=== PATIENT | male | born 2000 | race Caucasian/White ===

== ENCOUNTER 2023-12-05 00:21 | Observation (INO) ==
[2023-12-05 01:36] LABS: Urine Appearance Clear; Urine Bacteria Absent (Absent); Urine Bilirubin Negative (Negative); Urine Blood 3+ (Negative); Urine Color Straw; Urine Glucose Negative (Negative); Urine Ketones Negative (Negative); Urine Nitrite Negative (Negative); Urine Protein 1+(30 mg/dL) (Negative); Urine Red Blood Cell Absent (Absent); Urine Specific Gravity 1.005 (1.002-1.030); Urine Urobilinogen Negative (Negative); Urine White Blood Cell Absent (Absent)
[2023-12-05 01:48] LABS: ABS Basophils 0.1 10^3/uL (0.0-0.1); ABS Eosinophils 0.3 10^3/uL (0.0-0.5); ABS Lymphocytes 2.5 10^3/uL (1.0-4.8); ABS Monocytes 0.6 10^3/uL (0.0-1.1); ABS Neutrophils 4.1 10^3/uL (1.5-7.6); ABS Nucleated RBC 0.01 10^3/ul; Eosinophil % 4.2 %; Hemoglobin 12.9 g/dL (13.2-16.3); Lymphocyte % 32.4 %; Mean Corpuscular Hemoglobin 31.3 pg (27-33); Mean Corpuscular Volume 91.9 fL (80-97); Nucleated Red Blood Cells % 0.1 %/100WBC (0.0-0.8); Platelet Count 223 10^3/uL (150-450); Red Blood Count 4.13 10^6/uL (4.06-5.63); Red Cell Distribution Width 13.7 % (12-17); White Blood Count 7.6 10^3/uL (3.6-10.2)
[2023-12-05 02:06] LABS: C Reactive Protein 4.59 mg/L (<8.01); Calcium 8.8 mg/dL (8.6-10.3); Creatinine, Serum 0.65 mg/dL (0.67-1.17); eGFR CKD-EPI 134.1 (>60)
[2023-12-05 02:29] LABS: Albumin 3.9 g/dL (3.2-5.2); Albumin/Globulin Ratio 1.6 (1-3); Globulin 2.4 g/dL (2-4); Total Bilirubin 0.7 mg/dL (0.2-1.0); Total Protein 6.3 g/dL (6.4-8.9)
[2023-12-05] MEDS ORDERED: NS 0.9% 1000 ml BAG 1,000 ML IV ONE ×2 (03:41→04:31)
[2023-12-05] MEDS ORDERED: Polyethylene Glycol 3350 17 GM PACKET PO PRN (04:18)
[2023-12-05] MEDS ORDERED: Magnesium Hydroxide LIQ 30 ML UDC PO PRN (04:18)
[2023-12-05 04:22] LABS: Hepatitis B Surface Antigen Nonreactive (Nonreactive)
[2023-12-05 04:27] LABS: Hepatitis A Ab IgM Negative (Negative)
[2023-12-05 04:28] LABS: Hepatitis B Core IgM Nonreactive (Nonreactive)
[2023-12-05 04:40] LABS: Hepatitis C Antibody Negative (Negative)
[2023-12-05 05:33] LABS: Urine Benzodiazepine Screen None Detected (None Detect); Urine Cannabinoids Screen None Detected (None Detect); Urine Opiates Screen None Detected (None Detect)
[2023-12-05] MEDS: NS 0.9% 1000 ml BAG 1,000 ML IV SCH ×2 (06:21→11:43)
[2023-12-05 06:46] LABS: INR 1.04 (0.83-1.13)
[2023-12-05 08:57] LABS: Albumin 3.7 g/dL (3.2-5.2); Albumin/Globulin Ratio 1.8 (1-3); Calcium 8.3 mg/dL (8.6-10.3); Creatinine, Serum 0.54 mg/dL (0.67-1.17); Globulin 2.1 g/dL (2-4); Potassium 3.9 mmol/L (3.5-5.0); Total Bilirubin 0.7 mg/dL (0.2-1.0); Total Protein 5.8 g/dL (6.4-8.9); eGFR CKD-EPI 141.8 (>60)
[2023-12-05] MEDS: Lactated Ringers 1000 ml BAG 1,000 ML IV SCH ×2 (16:40→20:41)
[2023-12-06] MEDS: Lactated Ringers 1000 ml BAG 1,000 ML IV SCH ×2 (01:01→05:02)
[2023-12-06 08:43] LABS: Calcium 9.5 mg/dL (8.6-10.3); Creatinine, Serum 0.59 mg/dL (0.67-1.17); Potassium 4.2 mmol/L (3.5-5.0); eGFR CKD-EPI 138.1 (>60)
[2023-12-06] MEDS ORDERED: Influenza vaccine *QUAD* *2023-24* 0.5 ML SYRINGE IM ONE (09:00)
[2023-12-06 13:05] VITALS: BP 119/65
== END 2023-12-06 15:13 | disposition home or self-care (01) ==
LOC: ED 00:21 → EDHOLD 00:21 → SUATTDRO 04:18 → MED 14:53
PROVIDERS: ADMIT Internal Medicine; ATTEND Internal Medicine